=== PATIENT | male | born 1975 | race Caucasian/White ===

== ENCOUNTER → 2016-08-09 | Outpatient (REF) | LOC: WSOH 14:02 | DX: Z02.4 Encounter for examination for driving license (principal) ==

== ENCOUNTER → 2016-11-18 | Outpatient (CLI) | payer BC | LOC: COL.RAD 09:29 | DX: M19.011 Primary osteoarthritis, right shoulder (principal); S43.431A Superior glenoid labrum lesion of right shoulder, initial encounter; M25.411 Effusion, right shoulder; M75.51 Bursitis of right shoulder; Y99.9 Unspecified external cause status ==

== ENCOUNTER 2016-12-02 08:34 | Outpatient (RCR) | payer OTHER | END 2017-03-02 | LOC: WSOH | DX: S43.401A Unspecified sprain of right shoulder joint, initial encounter (principal); S01.00XA Unspecified open wound of scalp, initial encounter; M19.011 Primary osteoarthritis, right shoulder; V83.5XXA Driver of special industrial vehicle injured in nontraffic accident, initial encounter; Y99.0 Civilian activity done for income or pay ==

== ENCOUNTER → 2017-03-29 | Outpatient (REF) | LOC: WSOH 09:37 | DX: Z02.4 Encounter for examination for driving license (principal) ==